=== PATIENT | female | born 1990 | race American Indian/Alaskan Native ===

== ENCOUNTER 2021-06-30 11:25 | Emergency (ER) | payer BC, MEDICAID, SELFPAY ==
[2021-06-30 11:53] VITALS: BP 136/69
[2021-06-30] MEDS ORDERED: ONDANSETRON 4 MG ODT TAB PO ONE (12:39)
[2021-06-30] MEDS ORDERED: ONDANSETRON 4 MG/2 ML INJ IV ONE (12:42)
[2021-06-30] MEDS ORDERED: dexAMETHasone 20 MG/5 ML VIAL IV ONE (12:55)
[2021-06-30] MEDS ORDERED: KETOROLAC 30 MG/1 ML INJ IV ONE (12:55)
[2021-06-30] MEDS ORDERED: SODIUM CHLORIDE 0.9% 1000 ML 1,000 ML IV ONE (13:01)
--- NOTE | 2021-06-30 13:01 | Emergency Department Report ---
ED Fever HPI - General Chief Complaint: Upper Respiratory Infection Stated Complaint: HEADACHE, VOMIT, PUI?: Yes Time Seen by Provider: 06/30/21 12:39 Source: patient Exam Limitations: no limitations - History of Present Illness Initial Comments: Chief complaint: "I am having all of the Covid symptoms." HPI: This is a 31-year-old female with history of BMI 54 who presents with cough vomiting diarrhea body aches loss of taste and smell subjective fever for 3 days. 3 days ago she had negative rapid Covid test. She also has headache and shortness of breath with ambulation. She is unable to keep anything down. Timing/Duration: other (3 days) Fever Severity/Quality: subjective Associated Symptoms: cough, headache, muscle aches, other (Shortness of breath fatigue) ED Review of Systems ROS: Stated complaint: HEADACHE, VOMIT, Other details as noted in HPI Comment: All other systems reviewed and negative Constitutional: chills, fever, malaise ENT: throat pain Respiratory: cough, shortness of breath Gastrointestinal: nausea, vomiting, diarrhea Neurological: headache ED Past Medical Hx - Past Medical History Previous Medical History?: Yes Additional medical history: scoliosis - Surgical History Past Surgical History?: No - Social History Smoking Status: Never Smoker Substance Use Type: None - Medications Home Medications: Home Medications Medication Instructions Recorded Confirmed Last Taken Type Ibuprofen [Motrin] 800 mg PO Q8HR PRN #12 tablet 10/23/18 Unknown Rx Ondansetron [Zofran Odt] 4 mg PO Q8HR PRN #10 tab.rapdis 06/30/21 Unknown Rx ED Physical Exam - General Limitations: No Limitations General appearance: alert, in no apparent distress, other (Laying semisupine appears comfortable) - Head Head exam: Present: atraumatic, normocephalic - Eye Eye exam: Present: normal appearance - ENT ENT exam: Present: mucous membranes moist - Neck Neck exam: Present: normal inspection, full ROM - Respiratory Respiratory exam: Present: normal lung sounds bilaterally. Absent: respiratory distress, wheezes, rales, rhonchi - Cardiovascular Cardiovascular Exam: Present: regular rate, normal rhythm, normal heart sounds. Absent: systolic murmur, diastolic murmur, rubs, gallop - GI/Abdominal GI/Abdominal exam: Present: soft, normal bowel sounds. Absent: distended, tenderness, guarding, rebound - Extremities Exam Extremities exam: Present: normal inspection - Neurological Exam Neurological exam: Present: alert, oriented X3 - Psychiatric Psychiatric exam: Present: normal affect, normal mood - Skin Skin exam: Present: warm, dry, intact, normal color. Absent: rash ED Course Vital Signs 06/30/21 11:48 Temperature 98.8 F Pulse Rate 113 H Respiratory 20 Rate Blood Pressure 136/69 O2 Sat by Pulse 96 Oximetry ED Medical Decision Making - Medical Decision Making Viral syndrome: Differential diagnosis include COVID-19 infection, influenza, and rotavirus recommended supportive care. Recommended repeat Covid test if symptoms persist after 7 days. Patient received IV Zofran, IV ketorolac, IV Decadron. Prescribed Zofran & ibuprofen. Critical care attestation.: If time is entered above; I have spent that time in minutes in the direct care of this critically ill patient, excluding procedure time. ED Disposition Clinical Impression: Viral syndrome, Suspected COVID-19 virus infection Disposition: - TO HOME OR SELFCARE Is pt being admited?: No Does the pt Need Aspirin: No Condition: Stable Instructions: Viral Illness, Adult Additional Instructions: Please obtain another Covid test if symptoms persist after a week. Prescriptions: Ondansetron [Zofran Odt] 4 mg PO Q8HR PRN #10 tab.rapdis PRN Reason: Nausea Referrals: PABLO GILBERT MD [Staff Physician] - 3-5 Days Forms: Work/School Release Form(ED)
== END 2021-06-30 14:52 | disposition home or self-care (01) ==
LOC: ED 11:25
DX: B34.9 Viral infection, unspecified (principal); Z20.822 Contact with and (suspected) exposure to COVID-19; Z79.899 Other long term (current) drug therapy
CPT/HCPCS: 96361; 96374; 96375; 99282; J1100; J1885; J2405; J7030